=== PATIENT | female | born 1975 | race Caucasian/White ===

== ENCOUNTER 2017-10-06 23:16 | Emergency (ER) | payer BC ==
[2017-10-07 07:35] LABS: NEGATIVE OBC STREP NEG; POSITIVE OBC STREP POS
== END 2017-10-07 00:03 | disposition home or self-care (01) ==
LOC: ER 10-07 00:03
DX: B34.9 Viral infection, unspecified (principal); I10 Essential (primary) hypertension; E28.2 Polycystic ovarian syndrome; Z88.1 Allergy status to other antibiotic agents
CPT/HCPCS: 87070; 87880; 99284